=== PATIENT | female | born 1975 | race Two or more races ===

== ENCOUNTER 2020-01-26 05:20 | Day surgery (SDC) | payer BC, OTHER ==
[2020-01-24 16:42] VITALS: BMI 22.8
[2020-01-26 12:38] LABS: BASO % 0.6 % (0-2.0); EOS % 1.5 % (0-4.5); HEMATOCRIT 43.5 % (32.4-45.2); HEMOGLOBIN 14.3 GM/dL (10.7-15.3); LYMPH % 24.1 % (8-40); MCH 29.2 pg (25.7-33.7); MEAN CELL VOLUME 88.6 fl (80-96); MEAN PLT VOLUME 10.2 fl (7.5-11.1); MONO % 4.5 % (3.8-10.2); NEUT % 69.3 % (42.8-82.8); PLATELET COUNT 188 K/MM3 (134-434); RBC 4.91 M/mm3 (3.60-5.2); RDW 14.1 % (11.6-15.6); WHITE BLOOD COUNT 9.5 K/mm3 (4.0-10.0)
[2020-01-26 12:59] LABS: CHLORIDE 110 mmol/L (98-107); POTASSIUM 4.5 mmol/L (3.5-5.1); SODIUM 142 mmol/L (136-145)
[2020-01-26 13:00] LABS: INR 1.02 (0.83-1.09); PROTHROMBIN TIME (PATIENT) 12.3 SEC (9.7-13.0)
[2020-01-26 13:01] LABS: CALCIUM 9.1 mg/dL (8.5-10.1)
[2020-01-26 13:02] LABS: ANION GAP 4 MMOL/L (8-16); BLOOD UREA NITROGEN 10.9 mg/dL (7-18); CO2 28 mmol/L (21-32); GLUCOSE,RANDOM 76 mg/dL (74-106)
[2020-01-26 13:05] LABS: CREATININE 0.8 mg/dL (0.55-1.3); SGOT/AST 11 U/L (15-37); SGPT/ALT 15 U/L (13-61)
[2020-01-26 13:06] LABS: BILIRUBIN,TOTAL 0.6 mg/dL (0.2-1)
[2020-01-26 13:07] LABS: TOT PROT 7.3 g/dl (6.4-8.2)
[2020-01-26 13:08] LABS: ALK PHOS 45 U/L (45-117)
[2020-01-26 13:19] LABS: ACTIVATED PTT 79.9 SECONDS (25.2-36.5)
[2020-01-26] MEDS ORDERED: MIDAZOLAM HCL 2 MG/2 ML SINGLE DOSE VIAL ONE (13:53)
[2020-01-26] MEDS ORDERED: KETOROLAC TROMETHAMINE 30 MG/1 ML VIAL ONE (13:55)
[2020-01-26] MEDS ORDERED: DEXAMETHASONE SOD PHOSPHATE 4 MG/1 ML VIAL ONE (13:55)
[2020-01-26] MEDS ORDERED: ONDANSETRON 4 MG/2 ML VIAL ONE (13:55)
[2020-01-26] MEDS ORDERED: SUCCINYLCHOLINE CHLORIDE 200 MG/10 ML SYRINGE ONE (13:55)
[2020-01-26] MEDS ORDERED: LIDOCAINE HCL/PF 2% SDV 5ML VIAL ONE (13:55)
[2020-01-26] MEDS ORDERED: PROPOFOL 20 ML ONE ×2 (13:57→14:43)
[2020-01-26] MEDS ORDERED: ONDANSETRON 4 MG/2 ML VIAL IVPUSH PRN (14:09)
[2020-01-26] MEDS ORDERED: LACTATED RINGERS SOLUTION 1,000 ML IV SCH (14:15)
[2020-01-26] MEDS ORDERED: ceFAZolin SODIUM 1 GM VIAL ONE (14:46)
[2020-01-26] MEDS ORDERED: SODIUM CHLORIDE 0.9% P/F 10 ML VIAL IJ ONE (14:46)
[2020-01-26] MEDS ORDERED: ceFAZolin 2 GRAM PREMIX BAG IVPB ONE (14:55)
[2020-01-26] MEDS ORDERED: HYDROmorphone HCl 2 MG/ML VIAL ONE (15:00)
[2020-01-26] MEDS ORDERED: ACETAMINOPHEN 1000 MG/100 ML VIAL (NON FORMULARY) IVPB ONE (15:26)
[2020-01-26] MEDS ORDERED: ACETAMINOPHEN INJECTION 100 ML IVPB ONE (15:54)
[2020-01-26 19:13] VITALS: BP 123/73; PULSE 60; TEMP 97.1
== END 2020-01-26 19:05 | disposition home or self-care (01) ==
LOC: JASU-SURG 05:20
PROVIDERS: ATTEND Obstetrics & Gynecology
PROC: 0U5B8ZZ Destruction of Endometrium, Via Natural or Artificial Opening Endoscopic (ICD-10-PCS; principal; 2020-01-26 14:00)
PROC: 0UDB7ZX Extraction of Endometrium, Via Natural or Artificial Opening, Diagnostic (ICD-10-PCS; 2020-01-26 14:00)
DX: N92.4 Excessive bleeding in the premenopausal period (principal)
CPT/HCPCS: 36415; 80053; 84702; 85025; 85610; 85730; 86850; 86900; 86901; 88305-TC; 94760; J0131

== ENCOUNTER 2023-03-24 07:35 | Emergency (ER) | payer BC, OTHER ==
[2023-03-24 08:00] VITALS: TEMP 97.5; BMI 24.7
[2023-03-24] MEDS ORDERED: MECLIZINE HCL 25 MG TABLET (FP) ONE (10:15)
[2023-03-24] MEDS: MECLIZINE HCL 25 MG TABLET (FP) PO ONE (10:33)
[2023-03-24] MEDS: SODIUM CHLORIDE 1,000 ML IV STA (10:34)
[2023-03-24 10:43] LABS: BASO % 0.7 % (0-2.0); EOS % 1.5 % (0-4.5); HEMATOCRIT 51.1 % (32.4-45.2); LYMPH % 23.2 % (8-40); MCH 28.7 pg (25.7-33.7); MCHC 33.2 g/dl (32.0-36.0); MEAN CELL VOLUME 86.5 fl (80-96); MEAN PLT VOLUME 9.1 fl (7.5-11.1); MONO % 4.6 % (3.8-10.2); PLATELET COUNT 242 10^3/uL (134-434); RBC 5.91 M/mm3 (3.60-5.2); RDW 14.7 % (11.6-15.6); WHITE BLOOD COUNT 8.2 K/mm3 (4.0-10.0)
[2023-03-24] MEDS ORDERED: amLODIPine BESYLATE 5 MG TABLET (FP) ONE (11:02)
[2023-03-24] MEDS ORDERED: FAMOTIDINE 20 MG TABLET ONE (11:04)
[2023-03-24 11:05] LABS: PH,URINE 5.5 (5.0-8.0); URINE APPEARANCE CLEAR; URINE BILIRUBIN NEGATIVE (NEGATIVE); URINE COLOR YELLOW; URINE GLUCOSE (UA) NEGATIVE (NEGATIVE); URINE KETONE NEGATIVE (NEGATIVE); URINE LEUK ESTERASE NEGATIVE (NEGATIVE); URINE NITRITE NEGATIVE (NEGATIVE); URINE PROTEIN NEGATIVE (NEGATIVE); URINE UROBILINOGEN 0.2 mg/dL (0.2-1.0)
[2023-03-24] MEDS: amLODIPine BESYLATE 5 MG TABLET (FP) PO ONE (11:08)
[2023-03-24 11:18] LABS: HCG,QUALITATIVE URINE Negative
[2023-03-24] MEDS: FAMOTIDINE 20 MG TABLET PO ONE (11:31)
[2023-03-24 11:34] LABS: POTASSIUM 4.6 mmol/L (3.5-5.1)
[2023-03-24 11:39] LABS: CALCIUM 9.6 mg/dL (8.5-10.1)
[2023-03-24 11:40] LABS: ALBUMIN 3.8 g/dl (3.4-5.0); BLOOD UREA NITROGEN 12.5 mg/dL (7-18)
[2023-03-24 11:43] LABS: CREATININE 0.8 mg/dL (0.55-1.3)
[2023-03-24 11:44] LABS: BILIRUBIN,TOTAL 0.9 mg/dL (0.2-1); TOT PROT 7.7 g/dl (6.4-8.2)
[2023-03-24 13:19] VITALS: BP 141/94; PULSE 74; RESP 18
== END 2023-03-24 14:13 | disposition home or self-care (01) ==
LOC: JER 07:35
PROC: 3E0337Z Introduction of Electrolytic and Water Balance Substance into Peripheral Vein, Percutaneous Approach (ICD-10-PCS; principal; 2023-03-24)
DX: R42 Dizziness and giddiness (principal); E86.0 Dehydration; I10 Essential (primary) hypertension; R53.1 Weakness; R11.0 Nausea
CPT/HCPCS: 36415; 80053; 81003; 84703; 85025; 99284-25